=== PATIENT | female | born 1960 | race Caucasian/White ===

== ENCOUNTER 2024-06-12 15:01 | Emergency (ER) | payer MEDICARE, SELFPAY ==
[2024-06-12 15:20] VITALS: BP 142/61; BP 144/70; PULSE 100; PULSE 83; RESP 20; TEMP 37; O2SAT 100; BMI 25.8
--- NOTE | 2024-06-12 15:26 | ED_ITS ---
HPI - General Adult General Chief complaint: Recheck/Abnormal Lab/Rx Stated complaint: D/C:KALEBSTA,SKETCHED OUT:RE EXAMINER,NEEDS RIDE:[place] Time Seen by Provider: 06/12/24 15:24 Source: patient and EMS Mode of arrival: EMS Limitations: no limitations History of Present Illness ED Provider: STEPHAN COX PA-C HPI narrative: 63 year old female BIBA from [facility] requesting ride home. Per patient, she was discharged and cleared from [facility] this morning. Reports waiting over 5 hours for her [employer] fuel truck driver to arrive to take her home to [place]. On arrival, the [employer] fuel truck driver made patient feel very uncomfortable and she did not want to get into the car with him. She requested that [facility] find her a different fuel truck driver or let her stay over night to find a ride in the morning however they declined and opted to send her to the ED to helpp get a ride back home to [place]. She reports feeling frustration surrounding this event and states she would like to sleep in her own bed tonight. She feels safe with herself. Denies SI/HI. She does not have any physical complaints at present. Denies AH/VH/TH. Denies etoh consumption. Denies ilicit substance use. Related Data Allergies Allergy/AdvReac Type Severity Reaction Status Date / Time No Known Allergies Allergy Verified 06/12/24 15:26 Review of Systems Review of Systems: Constitutional: No fever, chills, fatigue, night sweats, weight changes ENT/Mouth: No ear pain, hearing loss, nasal congestion, sinus pain, rhinorrhea, sore throat Eyes: No eye pain, swelling, redness, vision changes, discharge Cardio: No chest pain, palpitations, BETANCOURT, orthopnea, peripheral edema Pulm: No SOB, cough, sputum, wheezing, dyspnea, hemoptysis GI: No nausea, vomiting, hematemesis, abdominal pain, diarrhea, constipation, hematochezia, melena : No irregular bleeding, dysuria, frequency, urgency, hesitancy, hematuria, flank pain, urinary flow changes, urinary incontinence or retention MSK: No back pain, neck pain, joint pain, myalgias Skin: No lesions, rashes Neuro: No weakness, numbness, paresthesias, LOC, dizziness, headache Psych: No anxiety/panic, depression, SI/HI, AH/VH All other systems reviewed and are negative. [facility] Past Medical History Attestation statement: The following information was validated with the patient. Source: old records reviewed and nursing notes reviewed Social History Social History Advance Directives: No Advance Directives Information Provided: No Physical Exam ED Vital Signs: Vital Signs - 24 hr 06/12/24 15:20 06/12/24 15:44 Temperature 98.6 F 98.6 F Pulse Rate 83 83 Respiratory Rate 20 20 Blood Pressure 142/61 H 142/61 H Pulse Oximetry 100 100 Oxygen Delivery Method Room Air Room Air BMI result Body Mass Index 25.8 Vital signs stable, slightly hypertensive General: Well appearing, in no acute distress. Skin: Warm, dry, intact. No rashes or lesions. Head: Normocephalic, atraumatic. EENT: Hearing is intact b/l. Conjunctiva clear. Sclera is anicteric. PERRLA. EOM intact. Moist mucous membranes.? Neck: Supple without LAD. FROM. Cardiac: Chest wall symmetric. RRR. Lungs: Normal respiratory effort without accessory muscle use. CTA bilaterally. Abdomen: Soft, non-tender, non-distended. No rebound tenderness or guarding. Back: No midline spinous or paraspinal tenderness. No step off deformity. Ext: Upper and lower extremities atraumatic, without tenderness, deformity, swelling or erythema. Full ROM throughout. Neuro: AOx3. Normal speech. Ambulating with steady gait. Psych: Appropriate mood and affect. Responds appropriately to questions. Medical Decision Making Medical Decision Making MDM Narrative: 63 year old female BIBA from [facility] requesting ride home. Patient was medically cleared from [facility] and was being discharged home at the time she was transferred to ED. She does not have any current complaints. Denies SI/HI. Feels safe with herself and would like to sleep in her own bed tonight. I do not feel as though patient needs an entire care team evaluation. I did speak with Malaika from care team who is agreeable. Malaika will be calling patient an [employer] to transport her home to [place] at this time. Patient is agreeable with this and stable for discharge. Differential Diagnosis Differential Diagnoses: The differential diagnosis associated with the presentation includes As above Admission/Observation Not indicated Social Determinants Patient?s care significantly limited by Social Determinants of Health including: Other Social Determinant of Health Critical Care Time Critical Care Time Critical Care Time: No Discharge Plan Discharge Clinical Impression: General medical exam Patient Disposition: Home, Self-Care Additional Instructions: Continue all home meds as prescribed. Return with new or worsening symptoms. In the case of an emergency call 911. Interventions: ED Discharge Assessment Last Done: 06/12/24 15:44 Discharge Date/Time: 06/12/24 15:44 Print Language: Chilean
[2024-06-12 15:44] VITALS: BP 142/61; PULSE 83; RESP 20; TEMP 37; O2SAT 100
== END 2024-06-12 15:44 | disposition home or self-care (01) ==
PROVIDERS: Emergency Provider Emergency Medicine
DX: Z04.89 Encounter for examination and observation for other specified reasons (principal)
CPT/HCPCS: 99282